=== PATIENT | female | born 1970 | race Caucasian/White ===

== ENCOUNTER → 2023-12-26 | Outpatient (CLI) | payer BC | END | disposition home or self-care (01) | LOC: MRI 15:40 | PROVIDERS: ATTEND Family Medicine | DX: M25.812 Other specified joint disorders, left shoulder (principal); M25.612 Stiffness of left shoulder, not elsewhere classified; M25.512 Pain in left shoulder | CPT/HCPCS: 73221 ==

== ENCOUNTER → 2023-12-28 | Outpatient (CLI) | payer BC ==
[2023-12-28 13:00] LABS: C-REACTIVE PROTEIN 0.14 MG/DL (0.0-0.5)
[2023-12-28 13:18] LABS: RHEUM FACTOR QUAL REFLEX TITER NEGATIVE (Neg)
[2023-12-31 08:16] LABS: ANTISTREPTOLYSIN O AB 42.1 IU/mL (0.0-200.0)
[2023-12-31 13:42] LABS: ANTINUCLEAR ANTIBODIES Negative (Negative)
== END | disposition home or self-care (01) ==
LOC: LAB 12:10
PROVIDERS: ATTEND Physician Assistant Surgical
DX: R53.83 Other fatigue (principal); M25.50 Pain in unspecified joint
CPT/HCPCS: 36415; 85651; 86038; 86060; 86140; 86430